=== PATIENT | female | born 1955 | race Caucasian/White ===

== ENCOUNTER → 2016-07-25 | Outpatient (CLI) | payer OTHER ==
[~2016-07-25] MED LIST: AMOX1TAB12; ARMOUR THYROID; AZEL137S4 NAS; BACL20TA; BACL20TA PO; CHOL500020 PO; DOCU-30 PO; GUAI5LIQ; INTE44PE; METO25TA4 PO; OLME1TAB5 PO; OXYC-302 PO; RISE150T3 PO; THYR15TA PO; THYR30TA PO; TIZA2TAB PO; TIZANDINE; VALS1TAB7
== END | disposition home or self-care (01) ==
LOC: CFH 12:34
PROVIDERS: ATTEND Family Medicine
DX: M54.2 Cervicalgia (principal)
CPT/HCPCS: 72052

== ENCOUNTER → 2016-12-09 | Outpatient (CLI) | payer OTHER ==
[~2016-12-09] MED LIST changes: +DOCU-131 PO; -DOCU-30 PO; +OLME1TAB28 PO; -OLME1TAB5 PO
== END | disposition home or self-care (01) ==
LOC: CFH 10:05
PROVIDERS: ATTEND Family Medicine
DX: Z12.31 Encounter for screening mammogram for malignant neoplasm of breast (principal); Z13.820 Encounter for screening for osteoporosis; M81.0 Age-related osteoporosis without current pathological fracture; Z78.0 Asymptomatic menopausal state
CPT/HCPCS: 77080; G0202

== ENCOUNTER → 2017-03-14 | Outpatient (CLI) | payer OTHER ==
[~2017-03-14] MED LIST changes: +AMINOPHYLLINE 25 MG/ML, 10ML ONE; +REGADENOSON 0.4 MG/5 ML SYRINGE ONE
== END | disposition home or self-care (01) ==
LOC: CFH 08:44
PROVIDERS: ATTEND Family Medicine
DX: R07.2 Precordial pain (principal); I10 Essential (primary) hypertension
CPT/HCPCS: 78452; 93017; A9502; J0280; J2785

== ENCOUNTER → 2017-12-12 | Outpatient (CLI) | payer OTHER ==
[~2017-12-12] MED LIST changes: -AMINOPHYLLINE 25 MG/ML, 10ML ONE; -REGADENOSON 0.4 MG/5 ML SYRINGE ONE
== END | disposition home or self-care (01) ==
LOC: CFH 09:45
PROVIDERS: ATTEND Family Medicine
DX: Z12.31 Encounter for screening mammogram for malignant neoplasm of breast (principal)
CPT/HCPCS: 77063; 77067

== ENCOUNTER 2019-12-10 08:43 | Outpatient (CLI) | payer MEDICARE ==
[~2019-12-10 08:43] MED LIST changes: -TIZA2TAB PO; +TIZA2TAB4 PO
[2019-12-10] MEDS ORDERED: FENTANYL PF 100 MCG/2ML ONE (10:18)
[2019-12-10] MEDS ORDERED: FLUMAZENIL 0.1 MG/1 ML, 5ML ONE (10:18)
[2019-12-10] MEDS ORDERED: NALOXONE 1 MG/ML, 2ML ONE (10:18)
[2019-12-10] MEDS ORDERED: MIDAZOLAM 1 MG/ML, 5ML ONE (10:18)
[2019-12-10] MEDS ORDERED: GADOTERATE 7.5 MMOL/15 ML VIAL ONE (11:28)
== END 2019-12-10 23:59 | disposition home or self-care (01) ==
LOC: RAD 08:43
PROVIDERS: ATTEND Psychiatry & Neurology Neurology
DX: G35 Multiple sclerosis (principal); G95.89 Other specified diseases of spinal cord; M48.54XA Collapsed vertebra, not elsewhere classified, thoracic region, initial encounter for fracture; Z79.899 Other long term (current) drug therapy
CPT/HCPCS: 72157; 99156; 99157; A9575; J2250; J3010; J2310

== ENCOUNTER → 2019-12-25 | Outpatient (CLI) | payer MEDICARE | END | disposition home or self-care (01) | LOC: CFH 09:06 | PROVIDERS: ATTEND Family Medicine | DX: Z12.31 Encounter for screening mammogram for malignant neoplasm of breast (principal) | CPT/HCPCS: 77063; 77067 ==

== ENCOUNTER 2020-12-29 09:16 | Outpatient (CLI) | payer MEDICARE ==
[~2020-12-29 09:16] MED LIST changes: -OXYC-302 PO; +OXYC1TAB12 PO; +TIZA-106 PO; -TIZA2TAB4 PO
== END 2020-12-29 23:59 | disposition home or self-care (01) ==
LOC: CFH 09:16
PROVIDERS: ATTEND Family Medicine
DX: Z12.31 Encounter for screening mammogram for malignant neoplasm of breast (principal); M81.0 Age-related osteoporosis without current pathological fracture
CPT/HCPCS: 77063; 77067; 77080